=== PATIENT | female | born 1985 | race Caucasian/White ===

== ENCOUNTER 2017-11-02 10:03 | Emergency (ER) | payer OTHER ==
[~2017-11-02] VITALS: Ht 160 cm; Wt 90.7 kg
[~2017-11-02 10:03] MED LIST: ACULAR 0.5% EYE5 ML OPHTHALMIC; CIPRO500 MG PO; CIPROFLOXACIN500 M1 PO; FLAGYL500 MG PO; HYDROCODONE-AP1 EAC6 PO; IBUPROFEN 800800 M1 PO; MEDROLDOSEPACK PO; NOHOMEMEDICATIONS; NORCO 5-325 TA1 EACH PO; POLYMYXIN B/TMP10 ML OPHTHALMIC; TRAMADOL 50 MG50 MG PO; TRIAMCINOLONE A15 G1 TP
[2017-11-02 10:43] LABS: INFLUENZA A ANTIGEN None Detected (None Detect); INFLUENZA B ANTIGEN None Detected (None Detect)
[2017-11-02] MEDS ORDERED: ACETAMINOPHEN-1 EAC1 PO (11:47)
[2017-11-02] MEDS ORDERED: ZOFRAN ODT4 MG PO (12:09)
[2017-11-02 12:12] VITALS: BP 133/75
== END 2017-11-02 12:12 | disposition home or self-care (01) ==
LOC: M.ERS 10:03
PROVIDERS: Nurse Practitioner Family
DX: B34.9 Viral infection, unspecified (principal); F10.99 Alcohol use, unspecified with unspecified alcohol-induced disorder; Z87.442 Personal history of urinary calculi; Z98.890 Other specified postprocedural states

== ENCOUNTER 2017-12-20 14:35 | Emergency (ER) | payer OTHER ==
[~2017-12-20] VITALS: Ht 160 cm; Wt 90.3 kg
[~2017-12-20 14:35] MED LIST changes: +ACETAMINOPHEN-1 EAC1 PO; +ZOFRAN ODT4 MG PO
[2017-12-20] MEDS ORDERED: VISTARIL 25 MG25 M1 PO (14:50)
[2017-12-20 15:19] LABS: ABSOLUTE BASOPHILS 0.1 thou/uL (0.0-0.2); ABSOLUTE EOSINOPHILS 0.2 thou/uL (0.0-0.7); ABSOLUTE LYMPHOCYTES 1.9 thou/uL (0.8-5.3); ABSOLUTE MONOCYTES 0.5 thou/uL (0.0-1.2); ABSOLUTE NEUTROPHILS 5.7 thou/uL (1.6-8.1); EOSINOPHILS 2.1 %; HEMATOCRIT 42.1 % (37.0-47.0); HEMOGLOBIN 14.2 gm/dL (12.0-15.0); LYMPHOCYTES 22.3 %; MCH 29.2 pg (26.0-34.0); MCHC 33.9 g/dL (28.0-37.0); MCV 86.1 fL (80.0-100.0); MONOCYTES 6.3 %; MPV 7.4 fl. (7.2-11.1); NUCLEATED RBCS 0 /100WBC; PLATELET COUNT* 332 thou/uL (150-400); POLYS 68.3 %; RBC 4.89 mil/uL (4.20-5.00); RDW-CV 12.7 % (10.5-14.5); WBC 8.3 thou/uL (4.0-11.0)
[2017-12-20 15:24] LABS: ANION GAP 9 mmol/L (7-16); BUN 13 mg/dL (7-18); CALCIUM 8.5 mg/dL (8.5-10.1); CHLORIDE 103 mmol/L (98-107); CO2 28 mmol/L (21-32); CREATININE 0.8 mg/dL (0.6-1.3); GLUCOSE 113 mg/dL (70-99); SODIUM 140 mmol/L (136-145)
[2017-12-20 15:31] LABS: ALBUMIN 3.6 g/dL (3.4-5.0); ALKALINE PHOSPHATASE 62 U/L (46-116); LIPASE 211 U/L (73-393); SGOT 75 U/L (15-37); SGPT 93 U/L (30-65); TOTAL BILIRUBIN 0.2 mg/dL (<0.1-1.0); TOTAL PROTEIN 7.3 g/dL (6.4-8.2); TROPONIN-I LEVEL <0.06 ng/mL (<0.06)
[2017-12-20] MEDS ORDERED: TORADOL 10 MG T10 MG PO (15:52)
[2017-12-20] MEDS ORDERED: ROBAXIN 750 MG750 M1 PO (15:52)
[2017-12-20] MEDS ORDERED: ONDANSETRON HCL4 M2 PO (15:52)
[2017-12-20 16:04] VITALS: BP 149/101
== END 2017-12-20 16:04 | disposition home or self-care (01) ==
LOC: M.ERS 14:35
PROVIDERS: Physician Assistant
DX: M54.9 Dorsalgia, unspecified (principal); Z87.442 Personal history of urinary calculi; Z90.49 Acquired absence of other specified parts of digestive tract

== ENCOUNTER 2018-08-03 23:45 | Emergency (ER) | payer OTHER ==
[~2018-08-03] VITALS: Ht 160 cm; Wt 81.7 kg
[~2018-08-03 23:45] MED LIST changes: +ONDANSETRON HCL4 M2 PO; +ROBAXIN 750 MG750 M1 PO; +TORADOL 10 MG T10 MG PO; +VISTARIL 25 MG25 M1 PO
[2018-08-04 00:20] LABS: URINE BILIRUBIN NEGATIVE (Negative); URINE BLOOD 1+ (Negative); URINE CLARITY CLEAR; URINE COLOR YELLOW; URINE GLUCOSE-RANDOM NEGATIVE (Negative); URINE KETONES NEGATIVE (Negative); URINE LEUKOCYTES 2+ (Negative); URINE NITRITE NEGATIVE (Negative); URINE PROTEIN TRACE (Negative); URINE SPECIFIC GRAVITY 1.015 (1.005-1.030); URINE UROBILINOGEN 0.2 E.U./dl (0.2-1.0)
[2018-08-04 00:26] LABS: BACTERIA >30 Many /HPF (None Seen); CASTS None Seen /LPF (None Seen); CRYSTALS None Seen /LPF (None Seen); MUCUS 4-6 Moderate strn/LPF (None Seen); SQUAMOUS 0-3 Few /LPF (0-3); TRANSITIONAL EPITHEL CELL 0-3 Few /LPF (None Seen); URINE WBC >25 Many /HPF (0-5); WBC CLUMPS Moderate (None Seen)
[2018-08-04] MEDS ORDERED: PROMETH-CODEIN 65 ML PO (00:38)
[2018-08-04] MEDS ORDERED: LEVAQUIN 500 M500 M2 PO (00:38)
[2018-08-04] MEDS ORDERED: VENTOLIN HFA 1818 GM INH (00:38)
[2018-08-04 00:44] VITALS: BP 138/76
== END 2018-08-04 00:45 | disposition home or self-care (01) ==
LOC: M.ERS 23:45
PROVIDERS: Nurse Practitioner Family
DX: J20.9 Acute bronchitis, unspecified (principal); N39.0 Urinary tract infection, site not specified

== ENCOUNTER 2019-05-09 13:33 | Emergency (ER) | payer OTHER ==
[~2019-05-09] VITALS: Ht 160 cm; Wt 81.7 kg
[~2019-05-09 13:33] MED LIST changes: +LEVAQUIN 500 M500 M2 PO; +PROMETH-CODEIN 65 ML PO; +VENTOLIN HFA 1818 GM INH
[2019-05-09] MEDS ORDERED: AMOXICILLIN 50500 MG PO (13:49)
[2019-05-09 14:17] LABS: ABSOLUTE BASOPHILS 0.1 thou/uL (0.0-0.2); ABSOLUTE EOSINOPHILS 0.1 thou/uL (0.0-0.7); ABSOLUTE LYMPHOCYTES 0.8 thou/uL (0.8-5.3); ABSOLUTE MONOCYTES 1.2 thou/uL (0.0-1.2); ABSOLUTE NEUTROPHILS 7.9 thou/uL (1.6-8.1); BASOPHILS 0.7 %; HEMOGLOBIN 8.7 gm/dL (12.0-15.0); LYMPHOCYTES 7.8 %; MCHC 31.1 g/dL (28.0-37.0); MCV 70.6 fL (80.0-100.0); MONOCYTES 12.3 %; MPV 7.1 fl. (7.2-11.1); NUCLEATED RBCS 0 /100WBC; PLATELET COUNT* 316 thou/uL (150-400); POLYS 78.2 %; RBC 3.96 mil/uL (4.20-5.00); RDW-CV 17.4 % (10.5-14.5); WBC 10.2 thou/uL (4.0-11.0)
[2019-05-09 14:25] LABS: ANION GAP 8 mmol/L (7-16); BUN 7 mg/dL (7-18); CHLORIDE 102 mmol/L (98-107); CO2 27 mmol/L (21-32); CREATININE 0.9 mg/dL (0.6-1.3); GLUCOSE 186 mg/dL (70-99); POTASSIUM 3.8 mmol/L (3.5-5.1); SODIUM 137 mmol/L (136-145)
[2019-05-09 14:34] LABS: ALBUMIN 2.8 g/dL (3.4-5.0); ALKALINE PHOSPHATASE 97 U/L (46-116); LIPASE 148 U/L (73-393); SGOT 34 U/L (15-37); SGPT 66 U/L (30-65); TOTAL BILIRUBIN 0.3 mg/dL (<0.1-1.0); TOTAL PROTEIN 6.8 g/dL (6.4-8.2); TROPONIN-I LEVEL <0.06 ng/mL (<0.06)
[2019-05-09 14:59] LABS: PLATELET ESTIMATE ADEQUATE
[2019-05-09 15:22] LABS: URINE BILIRUBIN NEGATIVE (Negative); URINE BLOOD 2+ (Negative); URINE CLARITY SL CLOUDY; URINE COLOR YELLOW; URINE GLUCOSE-RANDOM NEGATIVE (Negative); URINE KETONES NEGATIVE (Negative); URINE PROTEIN 1+ (Negative); URINE SPECIFIC GRAVITY <= 1.005 (1.005-1.030); URINE UROBILINOGEN 0.2 E.U./dl (0.2-1.0)
[2019-05-09 15:23] LABS: URINE LEUKOCYTES-REFLEX 2+ (Negative); URINE NITRITE-REFLEX POSITIVE (Negative)
[2019-05-09 15:32] LABS: BACTERIA-REFLEX >30 Many /HPF (None Seen); CASTS None Seen /LPF (None Seen); CRYSTALS None Seen /LPF (None Seen); SQUAMOUS 0-3 Few /LPF (0-3); URINE RBC 0-2 Rare /HPF (0-2); URINE WBC-REFLEX >25 Many /HPF (0-5)
[2019-05-09] MEDS ORDERED: CIPRO500 MG PO (16:08)
[2019-05-09 16:30] VITALS: BP 109/69
== END 2019-05-09 16:32 | disposition home or self-care (01) ==
LOC: M.ERS 13:33
PROVIDERS: Nurse Practitioner Family
DX: N12 Tubulo-interstitial nephritis, not specified as acute or chronic (principal); N39.0 Urinary tract infection, site not specified; F41.0 Panic disorder [episodic paroxysmal anxiety]; Z87.442 Personal history of urinary calculi; Z90.49 Acquired absence of other specified parts of digestive tract; Z98.51 Tubal ligation status

== ENCOUNTER 2019-12-09 17:42 | Emergency (ER) | payer OTHER, MEDICAID ==
[~2019-12-09] VITALS: Ht 160 cm; Wt 94.8 kg
[~2019-12-09 17:42] MED LIST changes: +AMOXICILLIN 50500 MG PO; +LEVSIN0.125 MG SUBLING; +OXYBUTYNIN 5 MG5 M2 PO; +PERCOCET PO; +PHENAZOPYRIDIN100 M1 PO
[2019-12-09] MEDS ORDERED: ANTIBIOTIC (17:58)
[2019-12-09 18:16] LABS: URINE BILIRUBIN NEGATIVE (Negative); URINE BLOOD 3+ (Negative); URINE CLARITY CLEAR; URINE COLOR YELLOW; URINE GLUCOSE-RANDOM TRACE (Negative); URINE KETONES NEGATIVE (Negative); URINE LEUKOCYTES-REFLEX 1+ (Negative); URINE PROTEIN 1+ (Negative); URINE SPECIFIC GRAVITY <= 1.005 (1.005-1.030); URINE UROBILINOGEN 0.2 E.U./dl (0.2-1.0)
[2019-12-09 18:18] LABS: URINE NITRITE-REFLEX POSITIVE (Negative)
[2019-12-09 18:20] LABS: HEMATOCRIT 31.3 % (37.0-47.0); HEMOGLOBIN 10.1 gm/dL (12.0-15.0); MCH 23.9 pg (26.0-34.0); MCHC 32.3 g/dL (28.0-37.0); MCV 73.9 fL (80.0-100.0); MPV 6.6 fl. (7.2-11.1); NUCLEATED RBCS 0 /100WBC; PLATELET COUNT* 433 thou/uL (150-400); RBC 4.24 mil/uL (4.20-5.00); RDW-CV 16.1 % (10.5-14.5); WBC 11.8 thou/uL (4.0-11.0)
[2019-12-09 18:23] LABS: AMP/METHAMP Negative (Negative); BARBITURATES Negative (Negative); BENZODIAZEPINES Negative (Negative); COCAINE Negative (Negative); METHADONE Negative (Negative); OPIATES Negative (Negative); PCP Negative (Negative); THC Negative (Negative)
[2019-12-09 18:26] LABS: SQUAMOUS 0-3 Few /LPF (0-3)
[2019-12-09 18:27] LABS: BACTERIA-REFLEX 1-9 Few /HPF (None Seen); CASTS None Seen /LPF (None Seen); CRYSTALS None Seen /LPF (None Seen); MUCUS None Seen strn/LPF (None Seen); URINE RBC >20 Many /HPF (0-2); URINE WBC-REFLEX 0-5 Rare /HPF (0-5)
[2019-12-09 18:29] LABS: CALCIUM 8.6 mg/dL (8.5-10.1); CREATININE 1.2 mg/dL (0.6-1.3); POTASSIUM 3.9 mmol/L (3.5-5.1)
[2019-12-09 18:34] LABS: ALBUMIN 2.8 g/dL (3.4-5.0); TOTAL BILIRUBIN 0.2 mg/dL (<0.1-1.0); TOTAL PROTEIN 7.1 g/dL (6.4-8.2)
[2019-12-09 18:40] LABS: ABSOLUTE LYMPHOCYTES 2.4 thou/uL (0.8-5.3); ABSOLUTE MONOCYTES 1.1 thou/uL (0.0-1.2); ABSOLUTE NEUTROPHILS 8.4 thou/uL (1.6-8.1)
[2019-12-09 18:41] LABS: ANISOCYTOSIS Occasional; PLATELET ESTIMATE INCREASED
[2019-12-09 18:42] LABS: MICROCYTES 1+
[2019-12-09 19:26] VITALS: BP 116/76
== END 2019-12-09 19:29 | disposition home or self-care (01) ==
LOC: M.ERS 17:42
PROVIDERS: Emergency Medicine
DX: R33.9 Retention of urine, unspecified (principal); F17.210 Nicotine dependence, cigarettes, uncomplicated; Z88.5 Allergy status to narcotic agent; Z88.6 Allergy status to analgesic agent; Z90.49 Acquired absence of other specified parts of digestive tract; Z87.442 Personal history of urinary calculi; Z98.51 Tubal ligation status; Z79.899 Other long term (current) drug therapy

== ENCOUNTER 2019-12-14 15:53 | Emergency (ER) | payer OTHER, MEDICAID ==
[~2019-12-14] VITALS: Ht 160 cm; Wt 94.8 kg
[~2019-12-14 15:53] MED LIST changes: +ANTIBIOTIC
[2019-12-14] MEDS ORDERED: PERCOCET 7.5-31 EACH PO (16:18)
[2019-12-14] MEDS ORDERED: HYOSCYAMINE0.125 MG PO (16:18)
[2019-12-14 17:19] VITALS: BP 141/82
== END 2019-12-14 17:20 | disposition home or self-care (01) ==
LOC: M.ERS 15:53
DX: G89.18 Other acute postprocedural pain (principal); M54.5 Low back pain; F41.0 Panic disorder [episodic paroxysmal anxiety]; Z88.5 Allergy status to narcotic agent; Z88.6 Allergy status to analgesic agent; Z87.442 Personal history of urinary calculi; Z98.51 Tubal ligation status

== ENCOUNTER 2020-05-05 23:42 | Emergency (ER) | payer OTHER, MEDICAID ==
[~2020-05-05] VITALS: Ht 160 cm; Wt 87.3 kg
[~2020-05-05 23:42] MED LIST changes: +HYOSCYAMINE0.125 MG PO; +PERCOCET 7.5-31 EACH PO
[2020-05-06 00:12] LABS: URINE BILIRUBIN NEGATIVE (Negative); URINE BLOOD TRACE (Negative); URINE CLARITY CLEAR; URINE COLOR YELLOW; URINE GLUCOSE-RANDOM NEGATIVE (Negative); URINE KETONES NEGATIVE (Negative); URINE LEUKOCYTES-REFLEX TRACE (Negative); URINE NITRITE-REFLEX NEGATIVE (Negative); URINE PROTEIN NEGATIVE (Negative); URINE SPECIFIC GRAVITY >= 1.030 (1.005-1.030); URINE UROBILINOGEN 0.2 E.U./dl (0.2-1.0)
[2020-05-06 00:20] LABS: AMP/METHAMP POSITIVE (Negative); BARBITURATES Negative (Negative); BENZODIAZEPINES Negative (Negative); COCAINE Negative (Negative); METHADONE Negative (Negative); OPIATES Negative (Negative); PCP Negative (Negative); THC Negative (Negative)
[2020-05-06 01:03] LABS: CASTS None Seen /LPF (None Seen); SQUAMOUS >10 Many /LPF (0-3)
[2020-05-06 01:04] LABS: MUCUS 0-3 Light strn/LPF (None Seen); URINE WBC-REFLEX >25 Many /HPF (0-5)
[2020-05-06 01:05] LABS: CRYSTALS None Seen /LPF (None Seen); URINE RBC 0-2 Rare /HPF (0-2)
[2020-05-06] MEDS ORDERED: DOXYCYCLINE 10100 MG PO (01:34)
[2020-05-06 01:40] VITALS: BP 128/66
== END 2020-05-06 01:41 | disposition home or self-care (01) ==
LOC: M.ERS 23:42
PROVIDERS: Emergency Medicine
DX: N76.4 Abscess of vulva (principal); N39.0 Urinary tract infection, site not specified; Z90.49 Acquired absence of other specified parts of digestive tract; Z87.442 Personal history of urinary calculi; Z98.51 Tubal ligation status; Z88.6 Allergy status to analgesic agent

== ENCOUNTER 2020-06-12 21:05 | Emergency (ER) | payer OTHER, MEDICAID ==
[~2020-06-12] VITALS: Ht 160 cm; Wt 81.7 kg
[~2020-06-12 21:05] MED LIST changes: +DOXYCYCLINE 10100 MG PO
[2020-06-12] MEDS ORDERED: ACETAMINOPHEN-1 EAC2 PO (22:10)
[2020-06-12] MEDS ORDERED: BACTRIM DS TAB1 EAC1 PO (22:10)
[2020-06-12 22:16] VITALS: BP 139/81
== END 2020-06-12 22:17 | disposition home or self-care (01) ==
LOC: M.ERS 21:05
DX: L03.317 Cellulitis of buttock (principal); Z88.5 Allergy status to narcotic agent; Z88.6 Allergy status to analgesic agent; Z98.890 Other specified postprocedural states; Z98.51 Tubal ligation status; Z87.442 Personal history of urinary calculi

== ENCOUNTER 2020-12-22 22:37 | Emergency (ER) | payer OTHER, MEDICAID ==
[~2020-12-22] VITALS: Ht 160 cm; Wt 81.7 kg
[~2020-12-22 22:37] MED LIST changes: +ACETAMINOPHEN-1 EAC2 PO; +BACTRIM DS TAB1 EAC1 PO
[2020-12-22 22:50] VITALS: BP 145/72
[2020-12-22 22:59] LABS: URINE BILIRUBIN NEGATIVE (Negative); URINE BLOOD TRACE (Negative); URINE CLARITY CLEAR; URINE COLOR YELLOW; URINE GLUCOSE-RANDOM NEGATIVE (Negative); URINE KETONES NEGATIVE (Negative); URINE LEUKOCYTES-REFLEX NEGATIVE (Negative); URINE NITRITE-REFLEX POSITIVE (Negative); URINE PROTEIN NEGATIVE (Negative); URINE SPECIFIC GRAVITY >= 1.030 (1.005-1.030); URINE UROBILINOGEN 0.2 E.U./dl (0.2-1.0)
[2020-12-22] MEDS ORDERED: KEFLEX500 M1 PO (23:13)
[2020-12-22] MEDS ORDERED: PYRIDIUM200 MG PO (23:15)
[2020-12-22 23:16] LABS: CASTS None Seen /LPF (None Seen); SQUAMOUS >10 Many /LPF (0-3); URINE WBC-REFLEX 6-15 Few /HPF (0-5)
[2020-12-22 23:17] LABS: BACTERIA-REFLEX >30 Many /HPF (None Seen); CRYSTALS None Seen /LPF (None Seen); URINE RBC 0-2 Rare /HPF (0-2)
[2020-12-22] MEDS ORDERED: DIFLUCAN150 MG PO (23:21)
[2020-12-22] MEDS ORDERED: ZOFRAN ODT4 MG PO (23:22)
== END 2020-12-22 23:28 | disposition home or self-care (01) ==
LOC: M.ERS 22:37
PROVIDERS: Emergency Medicine
DX: N39.0 Urinary tract infection, site not specified (principal); Z87.442 Personal history of urinary calculi; Z98.51 Tubal ligation status; Z98.890 Other specified postprocedural states; Z88.5 Allergy status to narcotic agent; Z88.8 Allergy status to other drugs, medicaments and biological substances; Z88.6 Allergy status to analgesic agent

== ENCOUNTER 2021-02-25 03:41 | Emergency (ER) | payer OTHER, MEDICAID ==
[~2021-02-25] VITALS: Ht 160 cm; Wt 86.2 kg
[~2021-02-25 03:41] MED LIST changes: +DIFLUCAN150 MG PO; +KEFLEX500 M1 PO; +PYRIDIUM200 MG PO
[2021-02-25 04:36] LABS: HEMATOCRIT 38.3 % (37.0-47.0); HEMOGLOBIN 13.1 gm/dL (12.0-15.0); MCH 29.7 pg (26.0-34.0); MCHC 34.3 g/dL (28.0-37.0); MCV 86.8 fL (80.0-100.0); MPV 7.5 fl. (7.2-11.1); RBC 4.41 mil/uL (4.20-5.00); RDW-CV 13.9 % (10.5-14.5); WBC 8.2 thou/uL (4.0-11.0)
[2021-02-25 04:39] LABS: CREATININE 0.8 mg/dL (0.6-1.3); POTASSIUM 3.7 mmol/L (3.5-5.1)
[2021-02-25 04:44] LABS: ALBUMIN 3.6 g/dL (3.4-5.0); TOTAL BILIRUBIN 0.2 mg/dL (<0.1-1.0); TOTAL PROTEIN 7.2 g/dL (6.4-8.2)
[2021-02-25 04:56] LABS: URINE BILIRUBIN NEGATIVE (Negative); URINE BLOOD 3+ (Negative); URINE CLARITY CLEAR; URINE COLOR YELLOW; URINE GLUCOSE-RANDOM NEGATIVE (Negative); URINE KETONES NEGATIVE (Negative); URINE LEUKOCYTES-REFLEX NEGATIVE (Negative); URINE NITRITE-REFLEX NEGATIVE (Negative); URINE PROTEIN NEGATIVE (Negative); URINE SPECIFIC GRAVITY >= 1.030 (1.005-1.030); URINE UROBILINOGEN 0.2 E.U./dl (0.2-1.0)
[2021-02-25] MEDS ORDERED: MEDROXYPROGESTE10 MG PO (05:08)
[2021-02-25] MEDS ORDERED: PREMARIN1.25 MG PO (05:08)
[2021-02-25 05:28] VITALS: BP 130/80
[2021-02-25 05:35] LABS: CASTS None Seen /LPF (None Seen); SQUAMOUS >10 Many /LPF (0-3)
[2021-02-25 05:36] LABS: BACTERIA-REFLEX 1-9 Few /HPF (None Seen); CRYSTALS None Seen /LPF (None Seen); URINE RBC >20 Many /HPF (0-2); URINE WBC-REFLEX 0-5 Rare /HPF (0-5)
== END 2021-02-25 05:29 | disposition home or self-care (01) ==
LOC: M.ERS 03:41
PROVIDERS: Personal Emergency Response Attendant
DX: N93.8 Other specified abnormal uterine and vaginal bleeding (principal); Z88.5 Allergy status to narcotic agent; Z87.442 Personal history of urinary calculi; Z98.51 Tubal ligation status